=== PATIENT | female | born 1940 | race Caucasian/White ===

== ENCOUNTER 2020-10-01 17:33 | Inpatient (IN) ==
[2020-10-01] MEDS: *HR* Metformin 500 MG TABLET PO SCH (20:55)
[2020-10-01] MEDS: Apixaban 5 MG TABLET PO SCH (20:56)
[2020-10-01] MEDS: Doxycycline 100 MG CAPSULE PO SCH (20:56)
[2020-10-01] MEDS: Cefdinir 300 MG CAPSULE PO SCH (20:56)
[2020-10-02 06:20] LABS: Basophils % 0.2 %; Hematocrit 38.2 % (35.3-44.9); Hemoglobin 13.2 g/dL (11.5-15.4); Immature Granulocytes % 2.3 % (0-4); Lymphocytes # 0.9 K/mcL (0.6-4.6); Lymphocytes % 6.9 %; Mean Corpuscular HGB Conc 34.6 g/dL (31.6-35.5); Mean Corpuscular Hemoglobin 29.2 pg (28.0-33.3); Mean Corpuscular Volume 84.5 fL (83.0-100.0); Mean Platelet Volume 10.3 fL (9.4-12.4); Monocytes # 1.2 K/mcL (0.0-1.3); Platelet Count 444 K/mcL (140-400); Red Blood Count 4.52 M/mcL (3.82-4.97); Red Cell Distribution Width 11.9 % (11.5-14.5); Segmented Neutrophils % 81.6 %; White Blood Count 12.8 K/mcL (4.3-11.1)
[2020-10-02 06:47] LABS: BUN/Creatinine Ratio 34 (6-26); Blood Urea Nitrogen 30 mg/dL (8-23); Carbon Dioxide 26 mEq/L (23-29); Chloride 97 mEq/L (98-107); Glucose 174 mg/dL (70-105); Osmolality,Calculated 286 (280-300); Potassium 3.4 mEq/L (3.5-5.1); Sodium 133 mEq/L (136-145); eGFR For African Americans > 60 (> 60); eGFR For Non-African Americans > 60 (> 60)
[2020-10-02 06:56] LABS: Neutrophils # 10.4 K/mcL (1.6-8.9)
[2020-10-02 07:00] LABS: Platelet Estimate Increased (Normal)
[2020-10-02] MEDS: Apixaban 5 MG TABLET PO SCH ×2 (08:30→21:33)
[2020-10-02] MEDS: Cefdinir 300 MG CAPSULE PO SCH ×2 (08:31→21:33)
[2020-10-02] MEDS: lisinopriL 20 MG TABLET PO SCH (08:31)
[2020-10-02] MEDS: dexAMETHasone 4 MG TABLET PO SCH (08:31)
[2020-10-02] MEDS: Doxycycline 100 MG CAPSULE PO SCH ×2 (08:32→21:33)
[2020-10-02] MEDS: *HR* Metformin 500 MG TABLET PO SCH ×2 (08:32→21:33)
[2020-10-02] MEDS: amLODIPine 5 MG TABLET PO SCH (08:32)
[2020-10-02 10:48] LABS: C-Reactive Protein 32 mg/L (Less than 10)
[2020-10-02 11:04] LABS: Ferritin 507 ng/mL (10-120)
[2020-10-02] MEDS ORDERED: *HR* Dextrose 50 % in Water (Vial) 50 ML VIAL IVP PRN (11:46)
[2020-10-02] MEDS ORDERED: D5% in Water 1,000 ML IVC PRN (11:46)
[2020-10-02] MEDS ORDERED: Dextrose Gel 15 GM/37.5 ML TUBE PO PRN ×2 (11:46)
[2020-10-02] MEDS: Insulin LISPRO 300 UNITS/3 ML VIAL SUBQ SCH ×2 (16:43→21:32)
[2020-10-03 06:05] LABS: Hematocrit 36.3 % (35.3-44.9); Hemoglobin 12.3 g/dL (11.5-15.4); Mean Corpuscular HGB Conc 33.9 g/dL (31.6-35.5); Mean Corpuscular Volume 85.6 fL (83.0-100.0); Mean Platelet Volume 10.3 fL (9.4-12.4); Platelet Count 460 K/mcL (140-400); Red Blood Count 4.24 M/mcL (3.82-4.97); Red Cell Distribution Width 11.8 % (11.5-14.5); White Blood Count 10.9 K/mcL (4.3-11.1)
[2020-10-03 06:29] LABS: Alanine Aminotransferase 24 Units/L (7-52); Albumin 3.1 g/dL (3.5-5.7); Alkaline Phosphatase 26 Units/L (34-104); Aspartate Amino Transferase 13 Units/L (13-39); BUN/Creatinine Ratio 35 (6-26); Bilirubin,Total 0.4 mg/dL (0.3-1.0); Blood Urea Nitrogen 33 mg/dL (8-23); Calcium 8.8 mg/dL (8.6-10.3); Carbon Dioxide 29 mEq/L (23-29); Chloride 96 mEq/L (98-107); Globulin 3.1 g/dL (2.4-3.5); Glucose 143 mg/dL (70-105); Osmolality,Calculated 286 (280-300); Potassium 3.4 mEq/L (3.5-5.1); Sodium 133 mEq/L (136-145); Total Protein 6.2 g/dL (6.4-8.9); eGFR For African Americans > 60 (> 60); eGFR For Non-African Americans 58 (> 60)
[2020-10-03] MEDS: Insulin LISPRO 300 UNITS/3 ML VIAL SUBQ SCH ×4 (07:45→22:53)
[2020-10-03 09:05] LABS: Ferritin 394 ng/mL (10-120)
[2020-10-03] MEDS: Cefdinir 300 MG CAPSULE PO SCH ×2 (09:23→22:53)
[2020-10-03] MEDS: dexAMETHasone 4 MG TABLET PO SCH (09:23)
[2020-10-03] MEDS: Apixaban 5 MG TABLET PO SCH ×2 (09:23→22:53)
[2020-10-03] MEDS: *HR* Metformin 500 MG TABLET PO SCH ×2 (09:23→22:53)
[2020-10-03] MEDS: amLODIPine 5 MG TABLET PO SCH (09:23)
[2020-10-03] MEDS: Doxycycline 100 MG CAPSULE PO SCH ×2 (09:23→22:53)
[2020-10-03] MEDS: lisinopriL 20 MG TABLET PO SCH (09:24)
[2020-10-03 10:14] LABS: C-Reactive Protein 16 mg/L (Less than 10)
[2020-10-04] MEDS: Insulin LISPRO 300 UNITS/3 ML VIAL SUBQ SCH ×4 (08:12→20:42)
[2020-10-04] MEDS: *HR* Metformin 500 MG TABLET PO SCH ×2 (09:03→20:41)
[2020-10-04] MEDS: lisinopriL 20 MG TABLET PO SCH (09:03)
[2020-10-04] MEDS: Cefdinir 300 MG CAPSULE PO SCH ×2 (09:03→20:41)
[2020-10-04] MEDS: Apixaban 5 MG TABLET PO SCH ×2 (09:04→20:42)
[2020-10-04] MEDS: amLODIPine 5 MG TABLET PO SCH (09:04)
[2020-10-04] MEDS: Doxycycline 100 MG CAPSULE PO SCH ×2 (09:04→20:41)
[2020-10-04] MEDS: dexAMETHasone 4 MG TABLET PO SCH (09:04)
[2020-10-05 05:56] LABS: Hematocrit 37.9 % (35.3-44.9); Hemoglobin 12.8 g/dL (11.5-15.4); Mean Corpuscular HGB Conc 33.8 g/dL (31.6-35.5); Mean Corpuscular Hemoglobin 28.8 pg (28.0-33.3); Mean Corpuscular Volume 85.2 fL (83.0-100.0); Mean Platelet Volume 9.7 fL (9.4-12.4); Platelet Count 527 K/mcL (140-400); Red Blood Count 4.45 M/mcL (3.82-4.97); Red Cell Distribution Width 11.6 % (11.5-14.5); White Blood Count 14.6 K/mcL (4.3-11.1)
[2020-10-05 06:12] LABS: BUN/Creatinine Ratio 32 (6-26); Blood Urea Nitrogen 30 mg/dL (8-23); Calcium 9.1 mg/dL (8.6-10.3); Carbon Dioxide 27 mEq/L (23-29); Chloride 97 mEq/L (98-107); Glucose 133 mg/dL (70-105); Osmolality,Calculated 286 (280-300); Potassium 3.6 mEq/L (3.5-5.1); Sodium 134 mEq/L (136-145); eGFR For African Americans > 60 (> 60); eGFR For Non-African Americans 56 (> 60)
[2020-10-05] MEDS: Insulin LISPRO 300 UNITS/3 ML VIAL SUBQ SCH ×4 (08:29→21:47)
[2020-10-05] MEDS: Cefdinir 300 MG CAPSULE PO SCH ×2 (08:47→21:47)
[2020-10-05] MEDS: Apixaban 5 MG TABLET PO SCH ×2 (08:47→21:47)
[2020-10-05] MEDS: lisinopriL 20 MG TABLET PO SCH (08:47)
[2020-10-05] MEDS: Doxycycline 100 MG CAPSULE PO SCH ×2 (08:47→21:46)
[2020-10-05] MEDS: *HR* Metformin 500 MG TABLET PO SCH ×2 (08:47→21:46)
[2020-10-05] MEDS: dexAMETHasone 4 MG TABLET PO SCH (08:47)
[2020-10-05] MEDS: amLODIPine 5 MG TABLET PO SCH (08:47)
[2020-10-05 12:10] LABS: Ferritin 266 ng/mL (10-120)
[2020-10-05 12:19] LABS: C-Reactive Protein < 5 mg/L (Less than 10)
[2020-10-06] MEDS: Insulin LISPRO 300 UNITS/3 ML VIAL SUBQ SCH ×2 (07:57→12:20)
[2020-10-06] MEDS: lisinopriL 20 MG TABLET PO SCH (07:58)
[2020-10-06] MEDS: amLODIPine 5 MG TABLET PO SCH (07:58)
[2020-10-06] MEDS: dexAMETHasone 4 MG TABLET PO SCH (07:58)
[2020-10-06] MEDS: *HR* Metformin 500 MG TABLET PO SCH (07:58)
[2020-10-06] MEDS: Apixaban 5 MG TABLET PO SCH (07:58)
[2020-10-06 08:00] VITALS: BP 144/70
== END 2020-10-06 17:20 | disposition home health service (06) | DRG 871 ==
LOC: INPGRE 17:53
PROVIDERS: ADMIT Family Medicine; ATTEND Family Medicine